=== PATIENT | male | born 1990 | race Caucasian/White ===

== ENCOUNTER 2021-07-31 23:03 | Emergency (ER) | payer SELFPAY ==
[~2021-07-31] VITALS: Ht 175.3 cm; Wt 68.2 kg
[2021-07-31 23:34] LABS: BASO % 0 % (0-3); EOS # 0.2 x10^3/uL (0.0-0.7); EOS % 3 % (0-3); HEMATOCRIT 41.1 % (39.0-53.0); HEMOGLOBIN 13.9 g/dL (13.0-17.5); LYMPH % 26 % (24-48); MEAN CORPUSCULAR HEMOGLOBIN 31 pg (25-35); MEAN CORPUSCULAR HGB CONC 34 g/dL (31-37); MEAN CORPUSCULAR VOLUME 92 fL (79-100); MONO # 0.5 x10^3/uL (0.0-1.1); MONO % 7 % (0-9); NEUT % 64 % (31-73); PLATELET COUNT 247 x10^3/uL (140-400); RED BLOOD COUNT 4.47 x10^6/uL (4.30-5.70); RED CELL DISTRIBUTION WIDTH 14.3 % (11.5-14.5); WHITE BLOOD COUNT 7.8 x10^3/uL (4.0-11.0)
--- NOTE | 2021-07-31 23:42 | PHYS DOC ---
Past Medical History Past Medical History: No Pertinent History Additional Past Medical Histor: DRUG ABUSE Past Surgical History: No Surgical History Smoking Status: Current Every Day Smoker Alcohol Use: None Social History Narrative: [facility] General Adult EDM: Chief Complaint: OVERDOSE HPI: HPI: Patient is a 30 year old patient with past medical history of dental abuse p resents today after a overdose. Patient apparently snorted an unknown amount of fentanyl. Apparently he was on the front porch and his sister found him unresponsive and proceeded to do CPR for approximately 15 minutes. Upon EMS arrival, patient did have a pulse but had agonal breath sounds. Patient was given 2 mg of Narcan. 1 mg in each nostril. Upon arrival to the emergency department, the patient did have stable vital signs with unlabored respirations and patient was A&O x4. Patient states that he was under an unusual amount of stress and decided to snort fentanyl. Patient states he has been clean for some time and just got out of group home about 2 weeks ago. Patient did state that he got the fentanyl for the street. Patient states that he is not sure the exact composition of the fentanyl. Review of Systems: Review of Systems: Constitutional: Denies fever or chills Eyes: Denies redness or eye pain HENT: Denies nasal congestion or sore throat Respiratory: Denies cough or shortness of breath Cardiovascular: Denies chest pain or palpitations GI: Denies abdominal pain, nausea, or vomiting : Denies dysuria or hematuria Musculoskeletal: Denies back pain or joint pain Integument: Denies rash or skin lesions Neurologic: Denies headache, focal weakness or sensory changes Complete systems were reviewed and found to be within normal limits, except as documented in this note. Heart Score: C/O Chest Pain: No Allergies: Allergies: Allergies Coded Allergies Type Severity Reaction Last Updated Verified No Known Drug Allergies 07/31/21 No Physical Exam: PE: Constitutional: Well developed, well nourished, no acute distress, non-toxic appearance HENT: Normocephalic, atraumatic Eyes: PERRL, EOMI, conjunctiva normal, no discharge Neck: Normal range of motion, no tenderness, supple Lungs & Thorax: No respiratory distress, equal chest rise and fall Abdomen: Soft, no tenderness Skin: Warm, dry, no erythema, no rash Back: No tenderness, no CVA tenderness Extremities: No tenderness, ROM intact, no edema Neurologic: Alert and oriented X 3, normal motor function, normal sensory function, no focal deficits noted Psychologic: Affect normal, judgment normal Current Patient Data: Labs: Laboratory Tests Test 07/31/21 23:20 White Blood Count 7.8 x10^3/uL (4.0-11.0) Red Blood Count 4.47 x10^6/uL (4.30-5.70) Hemoglobin 13.9 g/dL (13.0-17.5) Hematocrit 41.1 % (39.0-53.0) Mean Corpuscular Volume 92 fL (79-100) Mean Corpuscular Hemoglobin 31 pg (25-35) Mean Corpuscular Hemoglobin Concent 34 g/dL (31-37) Red Cell Distribution Width 14.3 % (11.5-14.5) Platelet Count 247 x10^3/uL (140-400) Neutrophils (%) (Auto) 64 % (31-73) Lymphocytes (%) (Auto) 26 % (24-48) Monocytes (%) (Auto) 7 % (0-9) Eosinophils (%) (Auto) 3 % (0-3) Basophils (%) (Auto) 0 % (0-3) Neutrophils # (Auto) 5.0 x10^3/uL (1.8-7.7) Lymphocytes # (Auto) 2.0 x10^3/uL (1.0-4.8) Monocytes # (Auto) 0.5 x10^3/uL (0.0-1.1) Eosinophils # (Auto) 0.2 x10^3/uL (0.0-0.7) Basophils # (Auto) 0.0 x10^3/uL (0.0-0.2) Laboratory Tests 07/31/21 23:20 Vital Signs: Vital Signs Date Time Temp Pulse Resp B/P (MAP) Pulse Ox O2 Delivery O2 Flow Rate FiO2 07/31/21 23:03 97.9 100 22 133/85 (101) 98 Room Air 97.9 Radiology/Procedures: Radiology/Procedures: PROCEDURE: CHEST AP ONLY Exam: Chest one view INDICATION: Chest discomfort TECHNIQUE: Frontal view of the chest Comparisons: None FINDINGS: The cardiomediastinal silhouette and pulmonary vessels are within normal limits. The lung and pleural spaces are clear. IMPRESSION: No acute cardiopulmonary process. Electronically signed by: Melissa Pruitt MD (07/31/2021 11:49 PM) [facility] DICTATED and SIGNED BY: MELISSA PRUITT MD Course & Med Decision Making: Course & Med Decision Making 30-year-old with past medical history of fentanyl abuse presents today after snorting an unknown amount of fentanyl. Patient was apparently found by his sister unconscious and pulseless so she started CPR for approximately 15 minutes. When EMS showed up patient did not have a pulse but had agonal breath sounds. Patient was given 2 mg Narcan. When patient arrived to the emergency department he was alert and oriented x4 with vital signs that were within normal limits. Patient denies ingesting any other drugs. However, patient does not aware of the composition of the fentanyl that he took. Patient denies any chest pain or shortness of breath. Poison control was contacted. In consultation with poison control, they suggested ordering acetaminophen levels, troponin, basic labs. Patient was observed for about 3 hours with no changes and is stable for discharge. Patient was counseled on cessation of fentanyl use and provided with appropriate resources. Patient stable for discharge with outpatient follow-up with PCP. Discussed findings and plan with patient, who acknowledges understanding and agreement. Diana Disclaimer: Dragaugusto Disclaimer: This electronic medical record was generated, in whole or in part, using a voice recognition dictation system. Departure Departure Impression: Primary Impression: Accidental fentanyl overdose Qualified Codes: T40.411A - Poisoning by fentanyl or fentanyl analogs, accidental (unintentional), initial encounter Disposition: HOME / SELF CARE / HOMELESS Condition: STABLE Patient Instructions: Alcohol and Drug Addiction, Finding Treatment, Drug Abuse, FAQs, Narcotic Overdose, Overdose, Accidental Additional Instructions: Please call [facility] at to seek help for your mental health and/or drug/alcohol abuse. KEERTHI RIVERS DO Jul 31, 2021 23:42
[2021-07-31 23:45] LABS: CALCIUM 8.4 mg/dL (8.5-10.1)
[2021-07-31 23:46] LABS: ACETAMIN < 2.0 mcg/ml (10-30); SALIC 0.9 mg/dL (2.8-20.0)
[2021-07-31 23:48] LABS: ETHANOL < 10 mg/dL (0-10)
[2021-07-31 23:50] LABS: ALBUMIN 3.8 g/dL (3.4-5.0)
[2021-07-31 23:51] LABS: ALBUMIN/GLOBULIN RATIO 1.2 (1.0-1.7); TOTAL BILIRUBIN 0.2 mg/dL (0.2-1.0)
--- NOTE | 2021-07-31 23:51 | RAD ---
Exam: Chest one view INDICATION: Chest discomfort TECHNIQUE: Frontal view of the chest Comparisons: None FINDINGS: The cardiomediastinal silhouette and pulmonary vessels are within normal limits. The lung and pleural spaces are clear. IMPRESSION: No acute cardiopulmonary process. Electronically signed by: Melissa Carter MD (07/31/2021 11:49 PM) [facility]
[2021-07-31 23:58] LABS: CREATINE KINASE 72 U/L (39-308)
[2021-08-01 01:49] VITALS: BP 121/62
== END 2021-08-01 01:57 | disposition home or self-care (01) ==
LOC: EDBD 23:03 → ER 23:03
DX: T40.411A Poisoning by fentanyl or fentanyl analogs, accidental (unintentional), initial encounter (principal); F17.200 Nicotine dependence, unspecified, uncomplicated; Y92.89 Other specified places as the place of occurrence of the external cause
CPT/HCPCS: 36415; 71045; 80053; 80329; 82553; 83735; 84484; 85025; 99285; G0480

== ENCOUNTER 2021-12-25 05:28 | Observation (INO) | payer SELFPAY ==
[~2021-12-25] VITALS: Ht 172.7 cm; Wt 74.6 kg
[2021-12-25] MEDS ORDERED: ONDANSETRON PF 4 MG/2 ML VIAL. IVP ONE (05:45)
--- NOTE | 2021-12-25 06:03 | PHYS DOC ---
Past Medical History Additional Past Medical Histor: DRUG ABUSE (TYLER MUNOZ MD) Past Surgical History: No Surgical History (TYLER MUNOZ MD) Smoking Status: Current Every Day Smoker Alcohol Use: None (TYLER MUNOZ MD) General Adult EDM: Chief Complaint: OVERDOSE HPI: HPI: Patient is a 31 year old male who presents with possible opioid overdose. Per EMS on arrival he had pulses but had significant respiratory depression and was comatose. They gave him to entire vials of Narcan which is approximately 4 mg. Patient's family prior to arrival had started doing CPR in his chest. Patient is awake now and states that his chest is hurting and that he took fentanyl by snorting it. Patient was recently in rehab. Denies using any other drugs at this time. (TYLER MUNOZ MD) Review of Systems: Review of Systems: Constitutional: Denies fever or chills. [] Eyes: Denies change in visual acuity. [] HENT: Denies nasal congestion or sore throat. [] Respiratory: Denies cough or shortness of breath. [] Cardiovascular: Positive for chest pain GI: Denies abdominal pain, nausea, vomiting, bloody stools or diarrhea. [] : Denies dysuria. [] Musculoskeletal: Denies back pain or joint pain. [] Integument: Denies rash. [] Neurologic: Denies headache, focal weakness or sensory changes. [] Endocrine: Denies polyuria or polydipsia. [] Lymphatic: Denies swollen glands. [] Psychiatric: Denies depression or anxiety. [] (TYLER MUNOZ MD) Heart Score: C/O Chest Pain: Yes HEART Score for Chest Pain: HEART Score for Chest Pain Response (Comments) Value History Slighlty/Non-Suspicious 0 ECG Normal 0 Age < 45 0 Risk Factors No Risk Factors 0 Troponin < Normal Limit 0 Total 0 Risk Factors: Risk Factors: DM, Current or recent (<one month) smoker, HTN, HLP, family history of CAD, obesity. Risk Scores: Score 0 - 3: 2.5% MACE over next 6 weeks - Discharge Home Score 4 - 6: 20.3% MACE over next 6 weeks - Admit for Clinical Observation Score 7 - 10: 72.7% MACE over next 6 weeks - Early Invasive Strategies (TYLER MUNOZ MD) Current Medications: Current Medications Medications (Trade) Dose Ordered Sig/Sher Start Time Stop Time Status Last Admin Dose Admin Ondansetron HCl (Zofran) 4 mg 1X ONCE 12/25/21 05:45 12/25/21 05:46 DC (TYLER MUNOZ MD) Allergies: Allergies: Allergies Coded Allergies Type Severity Reaction Last Updated Verified No Known Drug Allergies 07/31/21 No (TYLER MUNOZ MD) Physical Exam: PE: Constitutional: Well developed, well nourished, no acute distress, non-toxic appearance. [] HENT: Normocephalic, atraumatic, bilateral external ears normal, oropharynx moist, no oral exudates, nose normal. [] Eyes: PERRLA, EOMI, conjunctiva normal, no discharge. [] Neck: Normal range of motion, no tenderness, supple, no stridor. [] Cardiovascular: Bruise in the center of his chest Lungs & Thorax: Bilateral breath sounds clear to auscultation [] Abdomen: Bowel sounds normal, soft, no tenderness, no masses, no pulsatile masses. [] Skin: Warm, dry, no erythema, no rash. [] Back: No tenderness, no CVA tenderness. [] Extremities: No tenderness, no cyanosis, no clubbing, ROM intact, no edema. [] Neurologic: Alert and oriented X 3, normal motor function, normal sensory function, no focal deficits noted. [] Psychologic: Affect normal, judgement normal, mood normal. [] (TYLER MUNOZ MD) Current Patient Data: Labs: Laboratory Tests Test 12/25/21 05:30 12/25/21 07:18 12/25/21 10:10 White Blood Count 7.2 x10^3/uL Red Blood Count 4.68 x10^6/uL Hemoglobin 14.0 g/dL Hematocrit 42.1 % Mean Corpuscular Volume 90 fL Mean Corpuscular Hemoglobin 30 pg Mean Corpuscular Hemoglobin Concent 33 g/dL Red Cell Distribution Width 14.6 % Platelet Count 259 x10^3/uL Sodium Level 136 mmol/L 141 mmol/L Potassium Level 5.9 mmol/L 4.5 mmol/L Chloride Level 98 mmol/L 105 mmol/L Carbon Dioxide Level 31 mmol/L 28 mmol/L Anion Gap 7 8 Blood Urea Nitrogen 30 mg/dL 28 mg/dL Creatinine 1.3 mg/dL 1.0 mg/dL Estimated GFR (Cockcroft-Gault) 65.3 88.3 Glucose Level 304 mg/dL 69 mg/dL Calcium Level 8.5 mg/dL 8.3 mg/dL Acetaminophen Level < 2 mcg/ml Acetaminophen Last Dose Date Unknown Acetaminophen Last Dose Time Unknown Ethyl Alcohol Level < 10 mg/dL Troponin I High Sensitivity 65 ng/L 129 ng/L Current Medications Medications (Trade) Dose Ordered Sig/Sher Route PRN Reason Start Time Stop Time Status Last Admin Dose Admin Ondansetron HCl (Zofran) 4 mg 1X ONCE IVP 12/25/21 05:45 12/25/21 05:46 DC 12/25/21 06:07 Sodium Chloride 1,000 ml @ 1,000 mls/hr 1X ONCE IV 12/25/21 06:30 12/25/21 07:29 DC 12/25/21 06:30 Sodium Chloride 1,000 ml @ 1,000 mls/hr 1X ONCE IV 12/25/21 09:00 12/25/21 09:59 DC 12/25/21 08:58 (KAROLINA CASANOVA DO) EKG: EKG: [] (TYLER MUNOZ MD) Radiology/Procedures: Radiology/Procedures: [] (TYLER MUNOZ MD) Impression: IMPRESSION: No evidence of acute cardiopulmonary abnormality or significant interval change. (KAROLINA CASANOVA DO) Course & Med Decision Making: Course & Med Decision Making Pertinent Labs and Imaging studies reviewed. (See chart for details) [] (TYLER MUNOZ MD) Course & Med Decision Making Patient was reassessed. Patient is AAO x3 states that he feels better. Reviewed patient's troponin patient's troponin elevated from 60-1 20. Discussed the case with the hospitalist and will keep for observation for cardiac monitoring. (KAROLINA CASANOVA DO) Dragon Disclaimer: Dragon Disclaimer: This electronic medical record was generated, in whole or in part, using a voice recognition dictation system. (TYLER MUNOZ MD) Departure Departure Referrals: NO PCP (PCP) TYLER MUNOZ MD Dec 25, 2021 06:03 KAROLINA CASANOVA DO Dec 25, 2021 10:04
--- NOTE | 2021-12-25 06:05 | RAD ---
EXAMINATION: XR CHEST 1V CLINICAL HISTORY: Chest pain. EXAM DATE/TIME: 12/25/2021 5:46 AM COMPARISON: 07/31/2020 FINDINGS: Lines, Tubes, and Devices: None. Cardiomediastinal Silhouette: Within normal limits. Lungs and Pleura: No evidence of focal airspace consolidation or pleural effusion. Pulmonary vasculat ure unremarkable. Bones and Soft Tissues: No acute osseous abnormality. IMPRESSION: No evidence of acute cardiopulmonary abnormality or significant interval change. Electronically signed by: Robert Navarrete DO (12/25/2021 6:03 AM) [facility]
[2021-12-25 06:10] LABS: HEMATOCRIT 42.1 % (39.0-53.0); RED BLOOD COUNT 4.68 x10^6/uL (4.30-5.70); RED CELL DISTRIBUTION WIDTH 14.6 % (11.5-14.5); WHITE BLOOD COUNT 7.2 x10^3/uL (4.0-11.0)
[2021-12-25 06:12] LABS: CALCIUM 8.5 mg/dL (8.5-10.1); CREATININE 1.3 mg/dL (0.7-1.3); GFR 65.3; POTASSIUM 5.9 mmol/L (3.5-5.1)
[2021-12-25 06:16] LABS: ACETAMIN < 2 mcg/ml (10-30)
[2021-12-25] MEDS ORDERED: IV NORMAL SALINE 1000ML BAG 1,000 ML IV ONE ×2 (06:30→09:00)
[2021-12-25 07:38] LABS: CALCIUM 8.3 mg/dL (8.5-10.1); GFR 88.3; POTASSIUM 4.5 mmol/L (3.5-5.1)
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
[2021-12-25 15:00] VITALS: BP 127/70
[2021-12-25] MEDS ORDERED: busPIRone 5 MG TABLET. PO PRN (15:15)
[2021-12-25] MEDS ORDERED: NICOTINE 21MG PATCH. TD PRN (15:15)
[2021-12-25] MEDS ORDERED: traZODone 50 MG TABLET. PO PRN (15:15)
[2021-12-25] MEDS: SERTRALINE 50 MG TABLET. PO SCH (17:25)
[2021-12-25 19:00] VITALS: BP 133/69
[2021-12-25 23:00] VITALS: BP 146/76
[2021-12-26 03:00] VITALS: BP_SYST 114; BP_SYST 146; BP_DIAS 72; BP_DIAS 76
[2021-12-26 05:05] LABS: ALBUMIN 3.6 g/dL (3.4-5.0); CALCIUM 8.7 mg/dL (8.5-10.1); CREATININE 0.8 mg/dL (0.7-1.3); GFR 114.3; POTASSIUM 3.6 mmol/L (3.5-5.1); TOTAL BILIRUBIN 0.5 mg/dL (0.2-1.0); TOTAL PROTEIN 7.2 g/dL (6.4-8.2)
[2021-12-26 07:00] VITALS: BP 140/79
[2021-12-26] MEDS: SERTRALINE 50 MG TABLET. PO SCH (08:46)
[2021-12-26 11:00] VITALS: BP 134/86
[2021-12-26] MEDS ORDERED: SERT-267 PO (12:10)
[2021-12-26] MEDS ORDERED: TRAZ-118 PO (12:10)
[2021-12-26] MEDS ORDERED: BUSP5TAB PO (12:10)
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
== END 2021-12-26 17:45 | disposition home or self-care (01) ==
LOC: ER 05:28 → 6 SOUTH 11:03
PROVIDERS: ADMIT Internal Medicine; ATTEND Internal Medicine
DX: S26.91XA Contusion of heart, unspecified with or without hemopericardium, initial encounter (principal); R07.89 Other chest pain; T40.411A Poisoning by fentanyl or fentanyl analogs, accidental (unintentional), initial encounter; R77.8 Other specified abnormalities of plasma proteins; T40.2X1A Poisoning by other opioids, accidental (unintentional), initial encounter; F41.9 Anxiety disorder, unspecified; F32.A Depression, unspecified; F11.10 Opioid abuse, uncomplicated; F17.200 Nicotine dependence, unspecified, uncomplicated; R40.20 Unspecified coma; Z79.899 Other long term (current) drug therapy; Z98.890 Other specified postprocedural states; Y92.89 Other specified places as the place of occurrence of the external cause; Y93.89 Activity, other specified; Y99.8 Other external cause status
CPT/HCPCS: 36415; 71045; 80048; 80053; 80329; 84484; 85027; 96361; 96374; 99284; G0378; G0480; J2405; J7030; G0379